=== PATIENT | female | born 1955 | race Caucasian/White ===

== ENCOUNTER → 2017-03-28 | Day surgery (SDC) | payer OTHER ==
[~2017-03-28] VITALS: Ht 175.3 cm; Wt 109.3 kg
[~2017-03-28] MED LIST: 0.9% Sodium Chloride 1,000 ML IV SCH; BECL8.7A6 INHALATION; CELE200C PO; DEP500A PO; DICY10CA56 PO; ESTR1PAT81 TRANSDERM; HC A30CR2 RC; LEVO88TA3 PO; OMEP20TA86 PO; Sodium Chloride LOK Flush 10 mL Syringe IV PRN; TRAZ-115 PO; fentaNYL-PF 50 mCg/mL 2 mL Inj IVPUSH PRN
[2017-03-28 10:27] VITALS: BP 189/98; PULSE 81; RESP 17; O2SAT 98
[2017-03-28 11:37] VITALS: BP 104/65; PULSE 85; RESP 12; O2SAT 92
[2017-03-28 11:57] VITALS: BP 82/65; PULSE 73; RESP 16; O2SAT 96
[2017-03-28 12:02] VITALS: BP 151/82; PULSE 70; RESP 16; O2SAT 97
--- NOTE | 2017-03-28 21:49 | ENDO ---
[address] [address] ENDOSCOPY PROCEDURE PATIENT: ERIC DIXON : 1955 MR#: [id number] ADMIT: 03/28/2017 JOB ID: [id number] DATE: 03/28/2017 TYPE OF OPERATION: Esophagogastroduodenoscopy, biopsy and colonoscopy. PREOPERATIVE DIAGNOSIS(ES): Constipation. History of Hernandez's esophagus. POSTOPERATIVE DIAGNOSIS(ES): 1. Normal upper endoscopy, status post biopsy. 2. Mild sigmoid diverticulosis. 3. Small internal hemorrhoids. ANESTHESIA: Fentanyl 150 mcg, Versed 9 mg IV administered. COMPLICATION: None. ESTIMATED BLOOD LOSS: Minimal. DESCRIPTION OF PROCEDURE: After risks and benefits explained to the patient, informed consent was obtained. After anesthesia administered, upper endoscope was then inserted into mouth, intubated into the esophagus, stomach, second portion of duodenum. Mucosa carefully examined. After procedure was done, the scope withdrawn, procedure terminated. Colonoscope was then inserted from the rectum to cecum. Mucosa carefully examined. Prep of the patient was good. After procedure done, the scope was withdrawn and the procedure terminated. FINDINGS: Upon inspection of the esophagus, esophagus appeared normal without masses, ulcers, or lesions. Z-line located at 40 cm from incisors. Upon entering the stomach, the stomach was also normal without masses, ulcers, or lesions. Retroflexion normal. Duodenal bulb, first and second portion normal. Biopsies taken of duodenum, antrum, body, distal esophagus. Upon inspection of the anus, no masses, hemorrhoids, ulcers, or fissures are seen throughout the entire examination. There is mild sigmoid diverticulosis. No polyps or masses were seen. Retroflexion showed small internal hemorrhoids. IMPRESSION: 1. Small internal hemorrhoids. 2. Mild sigmoid diverticulosis. 3. Normal upper endoscopy, status post biopsy. RECOMMENDATION: Await pathology results. High-fiber diet. Follow up in GI clinic as needed.
--- NOTE | 2017-03-31 12:51 | PATH ---
SURGICAL PATHOLOGY Attending Physician:Satinder Luo MD CASE STATUS: Signed Out PATIENT NAME: ERIC DIXON PID: [id number] : 1955 DATE COLLECTED:03/28/2017 20:03 SPECIMEN: 1: Duodenum, Biopsy 2: Stomach, Antrum, Biopsy 3: Gastric, Biopsy 4: Esophagus, Biopsy CLINICAL HISTORY: 1). DUODENAL BIOPSY 2). ANTRUM BIOPSY, RULE OUT H PYLORI 3). GASTRIC BODY BIOPSY, RULE OUT H PYLORI 4). DISTAL ESOPHAGUS BIOPSY FINAL DIAGNOSIS: 1. Duodenum, Biopsy: Duodenal mucosa with no diagnostic abnormality. Negative for active inflammation, features of sprue, dysplasia or malignancy. 2-3. Gastric Antrum, Body, Biopsies: Gastric antral and body mucosa with no diagnostic abnormality. No evidence of Helicobacter organisms on H&E stain. Negative for intestinal metaplasia, dysplasia or malignancy. 4. Distal Esophagus, Biopsy: Squamous mucosa with no diagnostic abnormality. Intraepithelial eosinophils are not increased. Negative for dysplasia or malignancy. ICD10: R10.13 GROSS DESCRIPTION: The specimen is received in four formalin filled containers labeled with the patient's name. 1). The specimen is labeled "duodenal" and consists of 2 portions of tissue which aggregate to 0.3 x 0.2 x 0.2 CM. The specimen is entirely submitted in cassette 1A. 2). The specimen is labeled "antrum" and consists of 2 portions of tissue which aggregate to 0.3 x 0.2 x 0.2 CM. The specimen is entirely submitted in cassettes 2A. 3). The specimen is labeled "gastric body" and consists of 2 portions of tissue which aggregate to 0.3 x 0.3 x 0.2 CM. The specimen is entirely submitted in cassette 3A. 4). The specimen is labeled "distal esophagus" and consists of 2 extremely tiny portions of tissue which aggregate to 0.1 x 0.1 x 0.1 CM. The specimen is entirely submitted in cassette 4A. 03/28/2017DC ICD-9 CODES: CPT CODES: 1: 26696 2: 92824 3: 70700 4: 14634 Electronically Signed Out Kyle Garcia MD, Ph.D. [facility] [address] [place] [id number] Technical component performed at [facility], [address], [place], [address]
== END | disposition home or self-care (01) ==
LOC: END 00:26
PROVIDERS: ATTEND Internal Medicine Gastroenterology
DX: R10.13 Epigastric pain (principal); K21.9 Gastro-esophageal reflux disease without esophagitis; K64.8 Other hemorrhoids; K57.30 Diverticulosis of large intestine without perforation or abscess without bleeding; K62.5 Hemorrhage of anus and rectum; K59.00 Constipation, unspecified; M79.7 Fibromyalgia; J45.909 Unspecified asthma, uncomplicated; Z90.710 Acquired absence of both cervix and uterus; Z86.69 Personal history of other diseases of the nervous system and sense organs; Z96.652 Presence of left artificial knee joint; Z87.891 Personal history of nicotine dependence
CPT/HCPCS: 43239; 45378; 99153; G0500; J2250; J3010; J7030